=== PATIENT | male | born 1965 | race Hispanic/Latino ===

== ENCOUNTER → 2024-05-02 | Outpatient (CLI) | payer BC ==
[~2024-05-02] MED LIST: IOHEXOL 350 MG/ML 100ML INFUS..BTL IV ONE
== END | disposition home or self-care (01) ==
LOC: RAH 11:25
PROVIDERS: ATTEND Surgery Surgical Oncology
DX: C78.7 Secondary malignant neoplasm of liver and intrahepatic bile duct (principal); K76.89 Other specified diseases of liver
CPT/HCPCS: 74178; Q9967

== ENCOUNTER → 2024-05-17 | Outpatient (CLI) | payer BC ==
[~2024-05-17] MED LIST changes: +GADOTERATE MEGLUMINE 10 MMOL/20 ML VIAL IV ONE; -IOHEXOL 350 MG/ML 100ML INFUS..BTL IV ONE
== END | disposition home or self-care (01) ==
LOC: EDUNIT# 08:00 → RAH 14:43
PROVIDERS: ATTEND Surgery Surgical Oncology
DX: C20 Malignant neoplasm of rectum (principal); N32.89 Other specified disorders of bladder
CPT/HCPCS: 72197; A9575